=== PATIENT | male | born 1980 | race Caucasian/White ===

== ENCOUNTER 2017-08-18 22:14 | Emergency (ER) | payer OTHER ==
[2017-08-18 22:29] VITALS: BP 141/82; PULSE 78; TEMP 98.1; BMI 24.4
[2017-08-18] MEDS ORDERED: TETANUS AND DIPHTHERIA TOXOID 0.5 ML DISP.SYRIN IM ONE (23:03)
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
== END 2017-08-18 23:48 | disposition home or self-care (01) ==
LOC: JER 22:14
PROC: 3E0234Z Introduction of Serum, Toxoid and Vaccine into Muscle, Percutaneous Approach (ICD-10-PCS; principal; 2017-08-18)
DX: S60.512A Abrasion of left hand, initial encounter (principal); Y35.891A Legal intervention involving other specified means, law enforcement official injured, initial encounter; Y93.89 Activity, other specified; Y92.89 Other specified places as the place of occurrence of the external cause; Y99.0 Civilian activity done for income or pay
CPT/HCPCS: 99282-25

== ENCOUNTER 2018-05-30 21:31 | Emergency (ER) | payer OTHER, BC ==
[2018-05-30 21:54] VITALS: BP 148/72; PULSE 88; TEMP 98.7; BMI 23.7
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
[2018-05-30] MEDS ORDERED: RABIES IMMUNE GLOBULIN 300 UNITS/1 ML VIAL IM ONE (22:17)
[2018-05-30] MEDS ORDERED: RABIES VACCINE (PCEC)/PF 2.5 UNIT/VIAL IM ONE (22:17)
[2018-05-30] MEDS ORDERED: DIPHTH,PERTUSS(ACELL),TET 0.5 ML DISP.SYRIN IM ONE (22:42)
[2018-05-30] MEDS ORDERED: AMOX TR/POT CLAV 875MG/125MG TABLETS (FP) PO ONE (22:44)
[2018-05-30] MEDS ORDERED: AMOX TR/POT CLAV 875MG/125MG TABLETS (FP) ONE ×2 (23:06)
== END 2018-05-30 23:27 | disposition home or self-care (01) ==
LOC: JERFT 21:31
PROC: 0JQL0ZZ Repair Right Upper Leg Subcutaneous Tissue and Fascia, Open Approach (ICD-10-PCS; principal; 2018-05-30)
PROC: 3E0234Z Introduction of Serum, Toxoid and Vaccine into Muscle, Percutaneous Approach (ICD-10-PCS; 2018-05-30)
PROC: 3E0234Z Introduction of Serum, Toxoid and Vaccine into Muscle, Percutaneous Approach (ICD-10-PCS; 2018-05-30)
PROC: 3E0234Z Introduction of Serum, Toxoid and Vaccine into Muscle, Percutaneous Approach (ICD-10-PCS; 2018-05-30)
DX: S81.852A Open bite, left lower leg, initial encounter (principal); W54.0XXA Bitten by dog, initial encounter; Y93.89 Activity, other specified; Y92.038 Other place in apartment as the place of occurrence of the external cause; Y99.0 Civilian activity done for income or pay; Y35.891A Legal intervention involving other specified means, law enforcement official injured, initial encounter
CPT/HCPCS: 73590-TC-LT-FY; 90375; 90675; 90715; 99281-25

== ENCOUNTER 2018-06-02 11:07 | Emergency (ER) | payer OTHER, BC ==
[2018-06-02 11:23] VITALS: BP 113/71; PULSE 73; TEMP 98.6; BMI 24.4
--- NOTE | 2018-06-02 11:27 | PDOC ---
History of Present Illness - General Chief Complaint: Revisit,Rabies Injection Stated Complaint: Revisit,Rabies Injection Time Seen by Provider: 06/02/18 11:23 History Source: Patient Exam Limitations: No Limitations - History of Present Illness Initial Comments: 06/02/18 11:41 Patient is a 38-year-old male who presents for a wound check to his left lower extremity as well as a second rabies injection status post dog bite on 05/30/18. Patient reports no issues with the wound site. 4 simple interrupted sutures still intact. Pt taking the augmentin as previously prescribed. Denies fevers, chills, purulent drainage from the site, numbness and tingling to the extremity. Patient has follow-up appointment with orthopedics tomorrow. Past History - Travel Traveled outside of the country in the last 30 days: No Close contact w/someone who was outside of country & ill: No - Past Medical History Allergies/Adverse Reactions: Allergies Allergy/AdvReac Type Severity Reaction Status Date / Time No Known Allergies Allergy Verified 06/02/18 11:20 Home Medications: Ambulatory Orders Fingolimod HCl [Gilenya] 0.5 mg PO DAILY capsule 02/20/16 Amoxicillin/Potassium Clav [Augmentin 875-125 Tablet] 1 each PO BID #20 tablet 05/30/18 Ibuprofen 800 mg PO TID #30 tablet 05/30/18 Anemia: No Asthma: No Cancer: No Cardiac Disorders: No CVA: No COPD: No CHF: No Dementia: No Diabetes: No GI Disorders: No Disorders: No HTN: No Hypercholesterolemia: No Liver Disease: No Seizures: No Thyroid Disease: No - Immunization History Immunization Up to Date: Yes - Suicide/Smoking/Psychosocial Hx Smoking Status: No Smoking History: Never smoked Have you smoked in the past 12 months: No Number of Cigarettes Smoked Daily: 0 Hx Alcohol Use: No Drug/Substance Use Hx: No Substance Use Type: Alcohol Hx Substance Use Treatment: No Review of Systems - Review of Systems Able to Perform ROS?: Yes Comments:: 06/02/18 11:27 CONSTITUTIONAL: Absent: fever, chills, diaphoresis, generalized weakness, malaise, loss of appetite HEENT: Absent: rhinorrhea, nasal congestion, throat pain, throat swelling, difficulty swallowing, mouth swelling, ear pain, eye pain, visual Changes MUSCULOSKELETAL: Absent: myalgia, arthralgia, joint swelling SKIN: Present: repaired laceration to L lower extremity. Absent: rash, itching, pallor NEUROLOGIC: Absent: headache, focal weakness or paresthesias, dizziness, unsteady gait, seizure, mental status changes, bladder or bowel incontinence PSYCHIATRIC: Absent: anxiety, depression, suicidal or homicidal ideation, hallucinations. Is the patient limited Bulgarian proficient: No *Physical Exam - Vital Signs Last Vital Signs Temp Pulse Resp BP Pulse Ox 98.6 F 73 16 113/71 97 06/02/18 11:20 06/02/18 11:20 06/02/18 11:20 06/02/18 11:20 06/02/18 11:20 - Physical Exam Comments: 06/02/18 11:27 GENERAL: Well developed, well nourished. Awake and alert. No acute distress. HEENT: Normocephalic, atraumatic. PERRLA, EOMI. No conjunctival pallor. Sclera are non- icteric. Moist mucous membranes. Oropharynx is clear. MUSCULOSKELETAL Normal range of motion at all joints. No bony deformities or tenderness. No CVA tenderness. EXTREMITIES: No cyanosis. No clubbing. No edema. No calf tenderness. Full ROM of the L lower extremity, full dorsiflexsion and extesion SKIN: 4 simple interrupted sutures present to the L medial lower extremity. No purulent drainage or cellulitis present. Wound well approximated. Warm and dry. Normal capillary refill. No rashes. No jaundice. NEUROLOGICAL: Alert, awake, appropriate. Cranial nerves 2-12 intact. No deficits to light touch and temperature in face, upper extremities and lower extremities. No motor deficits in the in face, upper extremities and lower extremities. Normoreflexic in the upper and lower extremities. Normal speech. Toes are down- going bilaterally. Gait is normal without ataxia. PSYCHIATRIC: Cooperative. Good eye contact. Appropriate mood and affect. Medical Decision Making - Medical Decision Making 06/02/18 11:48 Patient is a 38-year-old male with past medical history of MS who presents to the emergency department today for a wound check and second rabies vaccination status post dog bite on 05/30/18. -Wound is well approximated with 4 simple interrupted sutures in place to the left medial lower extremity. No cellulitis or purulent drainage noted. -Second dose of rabies vaccination given today. -Pt to return for next shot on 06/06/18 -Patient reports that he has a vacation plans for 06/11/18. -Rabies vaccination supposed to be given on 06/13/18. Instructed patient to return sooner have next rabies shot (06/10/18). -Instructed patient to return for the 28 a shot as scheduled was . -Patient has or so follow-up tomorrow. Also instructed patient to continue his antibiotics. -I discussed the physical exam findings, ancillary test results and final diagnoses with the patient. I answered all of the patient's questions. The patient was satisfied with the care received and felt comfortable with the discharge plan and treatment plan. The Patient agrees to follow up with the primary care physician/specialist within 24-72 hours. Return precautions were given. *DC/Admit/Observation/Transfer Diagnosis at time of Disposition: Visit for wound check Dog bite Qualifiers: Encounter type: subsequent encounter Qualified Code(s): W54.0XXD - Bitten by dog, subsequent encounter - Discharge Dispostion Disposition: HOME Condition at time of disposition: Stable Decision to Admit order: No - Referrals Referrals: Jose Sanchez MD [Staff Physician] - - Patient Instructions Printed Discharge Instructions: DI for Rabies Vaccine Additional Instructions: You received your second rabies vaccination today. Please return on 06/06/18 for your next rabies shot. Please continue your antibiotics as previously prescribed. You may change the dressing daily. Once it stopped losing you may leave the wound to air. Please follow up with orthopedics as scheduled tomorrow. Your stitches will most likely, and 06/10/18. Return to the emergency department sooner if you have signs of infection to the site including warmth and redness, draining pus, fevers, or if you have any changes in your symptoms. - Post Discharge Activity Forms/Work/School Notes: Rabies Vaccination F/U [employer] Back to Work
[2018-06-02] MEDS ORDERED: RABIES VACCINE (PCEC)/PF 2.5 UNIT/VIAL IM ONE (11:54)
== END 2018-06-02 11:57 | disposition home or self-care (01) ==
LOC: JERFT 11:07
PROC: 3E0234Z Introduction of Serum, Toxoid and Vaccine into Muscle, Percutaneous Approach (ICD-10-PCS; principal; 2018-06-02)
DX: Z20.3 Contact with and (suspected) exposure to rabies (principal)
CPT/HCPCS: 90675; 99281-25

== ENCOUNTER 2018-06-10 11:38 | Emergency (ER) | payer OTHER, BC ==
[2018-06-10 11:58] VITALS: BP 127/74; PULSE 61; TEMP 98; BMI 24.4
[2018-06-10] MEDS ORDERED: RABIES VACCINE (PCEC)/PF 2.5 UNIT/VIAL IM ONE (12:05)
--- NOTE | 2018-06-10 12:15 | PDOC ---
History of Present Illness - General Chief Complaint: Revisit,Rabies Injection Stated Complaint: REVISIT, RABIES INJECTION Time Seen by Provider: 06/10/18 12:04 History Source: Patient Exam Limitations: No Limitations - History of Present Illness Initial Comments: 06/10/18 12:54 Patient here to receive his fourth rabies vaccination. Status post bull attack on May 30 requiring suturing and reevaluation for wound to posterior left lower leg. Patient denies fever, purulent drainage, or excessive pain. Timing/Duration: unsure Severity: mild Associated Symptoms: reports: denies symptoms Past History - Travel Traveled outside of the country in the last 30 days: No Close contact w/someone who was outside of country & ill: No - Past Medical History Allergies/Adverse Reactions: Allergies Allergy/AdvReac Type Severity Reaction Status Date / Time No Known Allergies Allergy Verified 06/10/18 12:12 Home Medications: Ambulatory Orders Fingolimod HCl [Gilenya] 0.5 mg PO DAILY capsule 02/20/16 Amoxicillin/Potassium Clav [Augmentin 875-125 Tablet] 1 each PO BID #20 tablet 05/30/18 Ibuprofen 800 mg PO TID #30 tablet 05/30/18 Anemia: No Asthma: No Cancer: No Cardiac Disorders: No CVA: No COPD: No CHF: No DVT: No Dementia: No Diabetes: No GI Disorders: No Disorders: No HTN: No Hypercholesterolemia: No Liver Disease: No Seizures: No Thyroid Disease: No - Immunization History Immunization Up to Date: Yes - Suicide/Smoking/Psychosocial Hx Smoking Status: No Smoking History: Never smoked Have you smoked in the past 12 months: No Number of Cigarettes Smoked Daily: 0 Hx Alcohol Use: No Drug/Substance Use Hx: No Substance Use Type: Alcohol Hx Substance Use Treatment: No Review of Systems - Review of Systems Able to Perform ROS?: Yes Is the patient limited Georgian proficient: Yes Constitutional: Yes: See HPI. No: Symptoms Reported HEENTM: No: Symptoms Reported Respiratory: No: Symptoms reported : No: Symptoms Reported All Other Systems: Reviewed and Negative *Physical Exam - Vital Signs Last Vital Signs Temp Pulse Resp BP Pulse Ox 98 F 61 16 127/74 100 06/10/18 11:47 06/10/18 11:47 06/10/18 11:47 06/10/18 11:47 06/10/18 11:47 - Physical Exam General Appearance: Yes: Nourished, Appropriately Dressed, Mild Distress. No: Apparent Distress HEENT: positive: TMs Normal Neck: positive: Supple. negative: Tender Gastrointestinal/Abdominal: positive: Soft Musculoskeletal: positive: Other (4 intact sutures to lower posterior left leg. Scabbing and some exudative drainage expressed. Has full range of motion at ankle with no dehiscence of wound or gaping noted. Neurovascular intact to toes. Achilles strong and gastric with strong flexion). negative: Vertebral Tenderness Extremity: positive: Normal Range of Motion Integumentary: positive: Normal Color, Dry, Warm Neurologic: positive: lifestyle coordinator II-XII NML intact, Fully Oriented, Alert, Normal Mood/ Affect, Normal Response, Motor Strength 5/5 *DC/Admit/Observation/Transfer Diagnosis at time of Disposition: Need for rabies vaccination - Discharge Dispostion Disposition: HOME Condition at time of disposition: Stable Decision to Admit order: No - Referrals - Patient Instructions Printed Discharge Instructions: DI for Rabies Vaccine Additional Instructions: return Jun 27 for last Rabies Vaccine Keep wound clean and dry, reapply bacitracin ointment and dressing - Post Discharge Activity Forms/Work/School Notes: Back to Work
== END 2018-06-10 13:02 | disposition home or self-care (01) ==
LOC: JERFT 11:38 → JER 11:38 → JERFT 13:02
PROC: 3E0234Z Introduction of Serum, Toxoid and Vaccine into Muscle, Percutaneous Approach (ICD-10-PCS; principal; 2018-06-10)
DX: Z20.3 Contact with and (suspected) exposure to rabies (principal); S81.852D Open bite, left lower leg, subsequent encounter; W54.0XXD Bitten by dog, subsequent encounter
CPT/HCPCS: 90675; 99281-25

== ENCOUNTER 2018-06-27 11:51 | Emergency (ER) | payer OTHER, BC ==
[2018-06-27 11:57] VITALS: BP 120/78; PULSE 69; TEMP 98.3; BMI 25.0
[2018-06-27] MEDS ORDERED: RABIES VACCINE (PCEC)/PF 2.5 UNIT/VIAL IM ONE (12:08)
--- NOTE | 2018-06-27 12:12 | PDOC ---
History of Present Illness - General Chief Complaint: Revisit,Rabies Injection Stated Complaint: RABIES SHOT Time Seen by Provider: 06/27/18 12:07 - History of Present Illness Initial Comments: 06/27/18 12:11 38-year-old male with multiple sclerosis on immunosuppressive therapy here first fifth and final rabies vaccination. He has no issues. Past History - Past Medical History Allergies/Adverse Reactions: Allergies Allergy/AdvReac Type Severity Reaction Status Date / Time No Known Allergies Allergy Verified 06/27/18 11:57 Home Medications: Ambulatory Orders Fingolimod HCl [Gilenya] 0.5 mg PO DAILY capsule 02/20/16 Anemia: No Asthma: No Cancer: No Cardiac Disorders: No CVA: No COPD: No CHF: No DVT: No Dementia: No Diabetes: No GI Disorders: No Disorders: No HTN: No Hypercholesterolemia: No Liver Disease: No Seizures: No Thyroid Disease: No - Immunization History Immunization Up to Date: Yes - Suicide/Smoking/Psychosocial Hx Smoking Status: No Smoking History: Never smoked Have you smoked in the past 12 months: No Number of Cigarettes Smoked Daily: 0 Information on smoking cessation initiated: No Hx Alcohol Use: No Drug/Substance Use Hx: No Substance Use Type: Alcohol Hx Substance Use Treatment: No Review of Systems - Review of Systems All Other Systems: Reviewed and Negative *Physical Exam - Vital Signs Last Vital Signs Temp Pulse Resp BP Pulse Ox 98.3 F 69 16 120/78 100 06/27/18 11:55 06/27/18 11:55 06/27/18 11:55 06/27/18 11:55 06/27/18 11:55 - Physical Exam Comments: 06/27/18 12:11 HEAD: NC/AT EYES: Conjuntiva clear MS: Full ROM in all joints without edema NEUROLOGIC: No gross sensory or motor deficits, NVID SKIN: Normal color and temperature no lesions or rashes *DC/Admit/Observation/Transfer Diagnosis at time of Disposition: Rabies, need for prophylactic vaccination against - Discharge Dispostion Disposition: HOME - Referrals - Patient Instructions Printed Discharge Instructions: DI for Rabies Vaccine Additional Instructions: U completer vaccination series. No further treatment is required. Please follow- up with her primary care physician in one to 2 days for appropriate reevaluation follow-up. - Post Discharge Activity
== END 2018-06-27 12:17 | disposition home or self-care (01) ==
LOC: JERFT 11:51
PROC: 3E0234Z Introduction of Serum, Toxoid and Vaccine into Muscle, Percutaneous Approach (ICD-10-PCS; principal; 2018-06-27)
DX: Z20.3 Contact with and (suspected) exposure to rabies (principal); S81.852D Open bite, left lower leg, subsequent encounter; W54.0XXD Bitten by dog, subsequent encounter
CPT/HCPCS: 90675; 99281-25

== ENCOUNTER 2019-07-05 23:30 | Emergency (ER) | payer OTHER, BC ==
[2019-07-05 23:45] VITALS: BP 130/85; PULSE 82; TEMP 98.4; BMI 24.4
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
== END 2019-07-06 00:36 | disposition home or self-care (01) ==
LOC: JER 23:30
DX: S89.82XA Other specified injuries of left lower leg, initial encounter (principal); M25.562 Pain in left knee; Y35.811A Legal intervention involving manhandling, law enforcement official injured, initial encounter; Y93.89 Activity, other specified; Y92.89 Other specified places as the place of occurrence of the external cause; Y99.0 Civilian activity done for income or pay
CPT/HCPCS: 99281-25

== ENCOUNTER 2024-04-21 19:33 | Emergency (ER) | payer OTHER ==
[2024-04-21 19:45] VITALS: BMI 24.4
[2024-04-21 20:02] VITALS: BP 132/97; PULSE 74; RESP 16; TEMP 99.1
== END 2024-04-21 20:08 | disposition home or self-care (01) ==
LOC: FER 19:33
DX: S60.511A Abrasion of right hand, initial encounter (principal); Y35.811A Legal intervention involving manhandling, law enforcement official injured, initial encounter
CPT/HCPCS: 99283-25